=== PATIENT | female | born 1995 | race Caucasian/White ===

== ENCOUNTER 2024-11-19 08:53 | Outpatient (CLI) | payer OTHER, SELFPAY ==
--- NOTE | 2024-11-19 09:04 | MM_ITS ---
WS: [id number] DIAGNOSTIC BILATERAL DIGITAL BREAST TOMOSYNTHESIS MAMMOGRAPHY WITH CAD RIGHT breast ultrasound, limited HISTORY: FAMILY HX OF BREAST CANCER, palpable mass medial RIGHT breast. COMPARISON: None available. TECHNIQUE: Bilateral craniocaudad, mediolateral oblique, and mediolateral views are submitted with tomosynthesis and SM. Spot compression RIGHT CC and MLO. Computer aided detection utilized. Breast composition: The breasts are extremely dense, which lowers the sensitivity of mammography. Triangular marker is placed along the medial RIGHT breast near the 3:00 axis at a middle depth. There is dense fibroglandular tissue but no distortion or discrete mass identified. Asymmetric densities are noted in each breast. There is no distortion or nipple retraction. RIGHT breast ultrasound, limited. Ultrasound performed in the area directed by the patient which corresponds to 3- 4 o'clock. There is no mass or shadowing. Normal appearance of the soft tissues. MM/MM diag BI tomosynthesis [id number] IMPRESSION: BI-RADS: 2 - Benign FOLLOW UP: See Report No mammographic or ultrasound abnormality identified.
== END 2024-11-19 08:54 | disposition home or self-care (01) ==
PROVIDERS: Visit Provider Nurse Practitioner Family
DX: N64.89 Other specified disorders of breast (principal); Z80.3 Family history of malignant neoplasm of breast; R92.341 Mammographic extreme density, right breast
CPT/HCPCS: 76642; 77062; G0279